=== PATIENT | female | born 1970 | race Caucasian/White ===

== ENCOUNTER → 2021-09-17 09:17 | Outpatient (CLI) | payer BC, SELFPAY ==
--- NOTE | ~2021-09-17 | CT_ITS ---
EXAMINATION: CT abdomen wo con DATE: 09/17/2021 09:56 INDICATION: Ventral hernia without obstruction or gangrene TECHNIQUE: Computed tomography (CT) of the abdomen was performed without intravenous contrast. The do se-length product (DLP) was 888.16 mGy-cm. Automated exposure control and iterative reconstruction te chnique were employed. COMPARISON: None FINDINGS: The lung bases are clear. The heart size is normal. The liver, spleen, pancreas, and adrena l glands are normal. The gallbladder is surgically absent. The kidneys are unremarkable. There are no pathologically enlarged abdominal lymph nodes. There are changes of midline mesh ventral hernia repa ir. There is a ventral hernia just to the right of the hernia mesh in the abdomen which contains mult iple loops of nonobstructed small bowel. The hernia neck measures 3.7 cm. A moderate volume of coloni c stool is present. There is mild lumbar spondylosis. IMPRESSION: 1. Ventral hernia containing multiple loops of nondilated small bowel to the right of midline with a 3.7 cm neck. Reviewed, dictated and finalized at location A. IMPRESSION: 1. Ventral hernia containing multiple loops of nondilated small bowel to the ri ght of midline with a 3.7 cm neck.
== END ==
PROVIDERS: PCP Surgery; Visit Provider Surgery
DX: K43.9 Ventral hernia without obstruction or gangrene (principal); M47.816 Spondylosis without myelopathy or radiculopathy, lumbar region
CPT/HCPCS: 74150